=== PATIENT | female | born 1960 | race Asian ===

== ENCOUNTER → 2023-12-11 14:22 | Outpatient (REF) | payer OTHER, SELFPAY | LOC: WDC 14:22 | PROVIDERS: ATTENDING PHYSICIAN Physician Assistant Medical | DX: Z12.31 Encounter for screening mammogram for malignant neoplasm of breast (principal); M81.0 Age-related osteoporosis without current pathological fracture | CPT/HCPCS: 77063; 77067; 77080 ==

== ENCOUNTER → 2024-12-23 15:22 | Outpatient (REF) | payer OTHER, SELFPAY | LOC: WDC 15:22 | PROVIDERS: ATTENDING PHYSICIAN Physician Assistant Medical | DX: Z12.31 Encounter for screening mammogram for malignant neoplasm of breast (principal) | CPT/HCPCS: 77063; 77067 ==